=== PATIENT | male | born 2000 | race Hispanic/Latino ===

== ENCOUNTER 2022-01-03 04:50 | Emergency (ER) | payer BC ==
[~2022-01-03] VITALS: Ht 167.6 cm; Wt 79.4 kg
[2022-01-03 04:58] VITALS: BP 142/81
== END 2022-01-03 05:24 | disposition home or self-care (01) ==
LOC: EDH 04:50
DX: F19.10 Other psychoactive substance abuse, uncomplicated (principal); F17.200 Nicotine dependence, unspecified, uncomplicated